=== PATIENT | male | born 1990 | race Two or more races ===

== ENCOUNTER 2024-11-10 12:40 | Emergency (ER) | payer OTHER ==
[~2024-11-10] VITALS: Ht 175.3 cm; Wt 83.9 kg
[2024-11-10 12:42] VITALS: BP 150/90
[2024-11-10 13:14] LABS: PLATELET COUNT (AUTO) 176 K/uL (152-348); RED BLOOD CELL COUNT(AUTO) 5.13 MIL/uL (4.06-5.63); RED CELL DISTRIBUTION WIDTH 13.4 % (12.1-16.2); WHITE BLOOD COUNT (AUTO) 10.3 K/uL (3.6-10.2)
[2024-11-10 13:21] LABS: CREATININE 0.7 mg/dL (0.6-1.3); SODIUM SERUM 138 mmol/L (136-145); UREA NITROGEN, BLOOD 9 mg/dL (7-18)
[2024-11-10 13:33] LABS: ASPARTATE AMINOTRANSFERASE 15 U/L (15-37); TOTAL PROTEIN, SERUM 7.3 g/dL (6.4-8.2)
[2024-11-10] MEDS ORDERED: PRED50TA PO (14:11)
[2024-11-10] MEDS ORDERED: DEXAMETHASONE SOD PHOSPHATE 10 MG INJ ONE (14:17)
[2024-11-10] MEDS: DEXAMETHASONE SOD PHOSPHATE 4 MG INJ IV ONE (14:18)
[2024-11-10 14:52] VITALS: BP 146/87; TEMP 97.9; O2SAT 100
== END 2024-11-10 14:40 | disposition home or self-care (01) ==
LOC: ER 12:40
DX: R07.89 Other chest pain (principal); R09.1 Pleurisy; F17.200 Nicotine dependence, unspecified, uncomplicated; I10 Essential (primary) hypertension; R06.02 Shortness of breath; Z79.52 Long term (current) use of systemic steroids
CPT/HCPCS: 99285; 96374; 71045; 80076; 80048; 83880; 85025; 85379; 85730; 84484; 36415; 93005; J1100; A4606; A4663